=== PATIENT | female | born 1965 | race Caucasian/White ===

== ENCOUNTER 2016-11-23 10:25 | Outpatient (CLI) | payer OTHER ==
[~2016-11-23 10:25] MED LIST: IBUPROFEN200 M1 PO
--- NOTE | 2016-11-23 11:21 | DIAGNOSTIC IMAGING REPORT ---
PROCEDURE: XR CERVICAL SPINE 4 OR 5 VIEW INDICATION: ARM PAIN TECHNIQUE: Five views. COMPARISON: None. FINDINGS: Spondylosis at the C6-7 No evidence of an acute process or fracture. Neural foramina are normal. IMPRESSION: 1. Spondylosis C6-7
--- NOTE | 2016-11-23 11:22 | DIAGNOSTIC IMAGING REPORT ---
PROCEDURE: XR SHOULDER 2 OR MORE VW-LEFT INDICATION: ARM PAIN TECHNIQUE: Three views. COMPARISON: None. FINDINGS: Osseous structures and joint spaces are normal. IMPRESSION: 1. Normal left shoulder.
== END 2016-11-23 23:00 | disposition home or self-care (01) ==
LOC: XR SRH 10:25
DX: M79.602 Pain in left arm (principal); M47.812 Spondylosis without myelopathy or radiculopathy, cervical region